=== PATIENT | male | born 1990 ===

== ENCOUNTER 2018-07-11 12:58 | Emergency (ER) | payer SELFPAY ==
[~2018-07-11] VITALS: Ht 165.1 cm; Wt 63.5 kg
[2018-07-11 13:00] VITALS: BP 162/83
[2018-07-11] MEDS ORDERED: TAMS0.4C32 PO (13:03)
[2018-07-11] MEDS ORDERED: BACTDSB PO (13:03)
== END 2018-07-11 15:17 | disposition left against medical advice (07) ==
LOC: EMS 12:59
DX: Z46.6 Encounter for fitting and adjustment of urinary device (principal); Z53.21 Procedure and treatment not carried out due to patient leaving prior to being seen by health care provider

== ENCOUNTER 2024-03-06 16:02 | Emergency (ER) | payer BC ==
[~2024-03-06] VITALS: Ht 162.6 cm; Wt 74.1 kg
[~2024-03-06 16:02] MED LIST: BACTDSB PO; TAMS0.4C94 PO
[2024-03-06 16:13] VITALS: TEMP 98.7
[2024-03-06] MEDS ORDERED: EMPA10TA3 PO (16:20)
[2024-03-06] MEDS ORDERED: AMLO-257 PO (16:20)
[2024-03-06] MEDS ORDERED: TRAZ-257 PO (16:20)
[2024-03-06] MEDS: ONDANSETRON HCL 4 MG/2 ML VIAL IVP ONE (17:07)
[2024-03-06] MEDS: SODIUM CHLORIDE 0.9% 1,000 ML IV ONE (17:07)
[2024-03-06 17:30] LABS: APPEARANCE,URINE CLEAR (CLEAR); BILIRUBIN,URINE NEGATIVE (NEGATIVE); COLOR,URINE COLORLESS (YELLOW); GLUCOSE, URINE (UA) 70-100 mg/dL (NEGATIVE); KETONES,URINE NEGATIVE (NEGATIVE); LEUKOCYTE ESTERASE ,URINE NEGATIVE (NEGATIVE); NITRATE,URINE NEGATIVE (NEGATIVE); OCCULT BLOOD,URINE NEGATIVE (NEGATIVE); PROTEIN,URINE NEGATIVE (NEGATIVE); SPECIFIC GRAVITIY, URINE 1.007 (1.003-1.030); UROBILINOGEN,URINE <=1.0 mg/dL (<=1.0)
[2024-03-06 17:30] LABS: BASOPHILS % (AUTO) 0.3 % (0.0-2.0); EOSINOPHILS % (AUTO) 0.2 % (1.0-6.0); HEMATOCRIT 46.1 % (41-53); HEMOGLOBIN 15.6 g/dL (13.5-17.5); LYMPHOCYTES # (AUTO) 1.6 K/uL (1.0-4.8); LYMPHOCYTES % (AUTO) 32.1 % (22.0-44.0); MEAN CORPUSCULAR HEMOGLOBIN 29.2 pg (26.0-34.0); MEAN CORPUSCULAR HGB CONC 33.9 G/dL (31.0-37.0); MEAN CORPUSCULAR VOLUME 86 fL (80-100); MONOCYTES # (AUTO) 0.5 K/uL (0.1-1.0); MONOCYTES % (AUTO) 9.5 % (2.0-9.0); NEUTROPHILS # (AUTO) 2.9 K/uL (1.8-7.7); NEUTROPHILS % (AUTO) 57.9 % (40.0-70.0); PLATELET COUNT (AUTO) 224 K/uL (150-450); RED BLOOD CELL COUNT(AUTO) 5.36 MIL/uL (4.50-5.90); RED CELL DISTRIBUTION WIDTH 13.6 % (11.5-14.5); WHITE BLOOD COUNT (AUTO) 5.1 K/uL (4.5-11.0)
[2024-03-06 17:34] LABS: ANION GAP 9 mmol/L (8-16); CALCIUM, TOTAL 8.4 mg/dL (8.8-10.5); CARBON DIOXIDE 27 mmol/L (22-29); CHLORIDE 102 mmol/L (98-107); CREATININE 0.98 mg/dL (0.60-1.30); GLOMERULAR FILTR. RATE CALC > 60 mL/min (>60); GLUCOSE,RANDOM 102 mg/dL (70-110); POTASSIUM 3.8 mmol/L (3.5-5.1); SODIUM SERUM 138 mmol/L (136-145); UREA NITROGEN, BLOOD 8 mg/dL (7-18)
[2024-03-06 17:40] LABS: ALANINE AMINOTRANSFERASE 35 U/L (12-78); ALKALINE PHOSPHATASE 66 U/L (46-116); ASPARTATE AMINOTRANSFERASE 22 U/L (15-37); BILIRUBIN,TOTAL 0.5 mg/dL (0.1-1.0); LIPASE 47 U/L (16-77); TOTAL PROTEIN, SERUM 7.8 g/dL (6.4-8.2)
[2024-03-06 18:27] LABS: BACTERIA,URINE None Seen /HPF (None Seen); RBC,URINE None Seen /HPF (0-2); WBC,URINE None Seen /HPF (0-5)
[2024-03-06 18:44] VITALS: BP 142/99; PULSE 84; RESP 18
== END 2024-03-06 19:10 | disposition home or self-care (01) ==
LOC: EMS 16:02
DX: F10.129 Alcohol abuse with intoxication, unspecified (principal); E86.0 Dehydration; R51.9 Headache, unspecified; R11.0 Nausea; E11.9 Type 2 diabetes mellitus without complications; I10 Essential (primary) hypertension; Z88.8 Allergy status to other drugs, medicaments and biological substances; Y90.6 Blood alcohol level of 120-199 mg/100 ml
CPT/HCPCS: 99284; 96374; 96361; 80048; 80076; 81001; 81003; 83690; 85025; 36415; 82962; 93005; J2405; J7030